=== PATIENT | female | born 1960 | race Caucasian/White ===

== ENCOUNTER → 2018-09-08 | Outpatient (REF) | payer BC ==
[~2018-09-08] MED LIST: ACET1TAB55 PO; IBUP200C25 PO; IBUP60TA PO; NAPR-885 PO; NORCOTAB PO; [UNRECOGNIZED DRUG - OTHER] TOP
[2018-09-08 14:54] LABS: MONO SCRN NEGATIVE (NEGATIVE)
[2018-09-08 15:23] LABS: INFLUENZA A AMPLIFICATION POSITIVE (NEGATIVE); INFLUENZA B AMPLIFICATION NEGATIVE (NEGATIVE)
== END ==
LOC: M LAB REF 12:43
PROVIDERS: ATTEND Nurse Practitioner Adult Health
DX: R50.9 Fever, unspecified (principal); J06.9 Acute upper respiratory infection, unspecified

== ENCOUNTER → 2018-09-19 | Outpatient (REF) | payer BC | LOC: M LAB REF 09:04 | PROVIDERS: ATTEND Ophthalmology | DX: D23.39 Other benign neoplasm of skin of other parts of face (principal) ==

== ENCOUNTER → 2021-04-04 | Outpatient (CLI) | payer BC ==
[~2021-04-04] MED LIST changes: +HYDR-3715 PO; +IBUP600T42 PO; -IBUP60TA PO; +MULTCAP PO; -NORCOTAB PO; +TAMO20TA8 PO
--- NOTE | 2021-04-04 10:21 | REPMRS ---
Patient History The patient states she had a clinical breast exam in . Patient is postmenopausal, has history of cancer in the right breast at age 53, had previous chest radiation therapy at age 53, and is nulliparous. Family history of breast cancer at age 70 in maternal aunt, breast cancer at age 52 in paternal cousin, breast cancer at age 50 in maternal cousin. Malignant radio exam breast specimen of the right breast, April 14, 2014. Malignant localization of breast nodule of the right breast, April 14, 2014. Malignant radio exam breast specimen of the right breast, February 28, 2014. Malignant stereotatic loc for ea lesion of the right breast, February 28, 2014. Took tamoxifen for 5 years beginning at age 53. Patient states no breast complaints today. Patient has signed MRS History Sheet. Digital Woman Screen Mammo: April 04, 2021 - Exam #: [id number] Bilateral CC and MLO view(s) were taken. Technologist: Dominique Malave Tie Cutter Prior study comparison: March 28, 2020, bilateral screening 3D/tomosynthesis, performed at [facility] [employer] [facility]. December 23, 2019, bilateral screening 3D/tomosynthesis, performed at [facility]. FINDINGS: There are scattered fibroglandular densities. Screening. This patient?s lifetime risk for the development of invasive breast cancer can?t be calculated due to her age (less than 20 or greater than 85 years) or a prior history of in situ or invasive breast cancer. Digital screening (2D) mammography was performed bilaterally. Additionally, breast tomosynthesis (3D mammography) was performed bilaterally in the CC and MLO projections. Today's exam was compared to the prior exam/exams.There are no prior DBT images for comparison. By history, the patient has no complaints of a palpable breast abnormality or other significant breast complaints. The patient is status post lumpectomy/chemo radiation therapy due to breast carcinoma. The breasts are unchanged in size and shape. There are no miguel ángel-areas of internal architectural distortion. There are no miguel ángel-soft tissue densities or areas of spiculation. There is unchanged post radiation skin thickening. IMPRESSION: BI-RADS Category 2- Benign Findings. There is no evidence of malignant alteration of the breasts. Routine bilateral screening mammogram recommended at its regularly scheduled annual interval. The [employer] volumetric breast density category is B, there are scattered areas of fibroglandular densities. This mammogram was read with the assistance of [place] [employer],an FDA approved computer aided detection system for mammography. Negative x-ray reports should not delay surgical consultation if a dominant or clinically suspicious mass is present. Not all breast cancers can be identified by mammography. Therefore, we recommend that you continue to perform regular breast self-examination and physical examination and then promptly contact your physician of any concerns or changes. Adenosis and dense breasts may obscure an underlying neoplasm. Assessment: BI-RADS/ACR category 2 mammogram. Benign Findings. Recommendation Routine screening mammogram of both breasts in 1 year. Electronically Signed By: Panda Mcderomtt DO 04/04/21 1029
== END ==
LOC: M WHC 08:52
PROVIDERS: ATTEND Internal Medicine
DX: Z12.31 Encounter for screening mammogram for malignant neoplasm of breast (principal)

== ENCOUNTER → 2022-05-26 | Outpatient (CLI) | payer BC | LOC: M WHC 11:07 | PROVIDERS: ATTEND Internal Medicine | DX: Z12.31 Encounter for screening mammogram for malignant neoplasm of breast (principal); Z13.820 Encounter for screening for osteoporosis; M81.0 Age-related osteoporosis without current pathological fracture; M85.851 Other specified disorders of bone density and structure, right thigh; M85.852 Other specified disorders of bone density and structure, left thigh ==